=== PATIENT | female | born 1940 | race Caucasian/White ===

== ENCOUNTER → 2020-04-11 10:41 | Outpatient (BNVA) | payer BC, SELFPAY | PROVIDERS: PCP Family Medicine; Visit Provider Physician Assistant | DX: M17.11 Unilateral primary osteoarthritis, right knee (principal) | CPT/HCPCS: 20610; J1040 ==

== ENCOUNTER → 2020-10-01 12:49 | Outpatient (BNVA) | payer BC, SELFPAY | PROVIDERS: PCP Family Medicine; Visit Provider Physician Assistant ==

== ENCOUNTER 2020-10-20 09:43 | Outpatient (REF) | payer BC, SELFPAY ==
--- NOTE | ~2020-10-20 | XR_ITS ---
EXAMINATION: XR KNEE AP STANDING CLINICAL INFORMATION: Pain COMPARISON: Right knee x-ray July 2019 TECHNIQUE: AP bilateral standing view of the knees was obtained. FINDINGS: Right knee: There is slight varus angulation. Bone alignment is otherwise normal. There is medial femoral tibial joint space narrowing. There is a soft tissue calcified adjacent to the medial femoral condyle. Left knee: There is mild medial subluxation of the distal femur with respect to the proximal tibia. There is joint space narrowing at the medial and lateral femoral tibial joints. XR/XR knee standing BI IMPRESSION: Degenerative changes.
== END 2020-10-20 09:44 | disposition home or self-care (01) ==
LOC: HO.HOSX 09:43
PROVIDERS: Visit Provider Orthopaedic Surgery
DX: M17.11 Unilateral primary osteoarthritis, right knee (principal)
CPT/HCPCS: 73565

== ENCOUNTER → 2020-12-23 09:54 | Outpatient (BNVA) | payer BC, SELFPAY | PROVIDERS: PCP Family Medicine; Visit Provider Orthopaedic Surgery | DX: Z01.818 Encounter for other preprocedural examination (principal); M17.11 Unilateral primary osteoarthritis, right knee | CPT/HCPCS: 36415; 80048; 85025; 93005 ==

== ENCOUNTER → 2021-01-15 12:18 | Outpatient (BNVA) | payer MEDICARE, SELFPAY | PROVIDERS: Visit Provider Physician Assistant | DX: M17.11 Unilateral primary osteoarthritis, right knee (principal) | CPT/HCPCS: 99212 ==

== ENCOUNTER 2021-01-20 06:09 | Inpatient (IN) | payer MEDICARE, SELFPAY ==
--- NOTE | 2020-12-23 11:03 | ECG_ITS ---
Test Reason : preop Blood Pressure : / mmHG Vent. Rate : 082 BPM Atrial Rate : 082 BPM P-R Int : 182 ms QRS Dur : 086 ms QT Int : 390 ms P-R-T Axes : 067 029 056 degrees QTc Int : 455 ms Normal sinus rhythm Normal ECG No previous ECGs available Referred By: Ramon Carrera Electronically Signed By:JANIA LITTLE
[2020-12-23 11:46] LABS: MANUAL DIFF FLAG NO
[2020-12-23 11:51] LABS: Basophils Absolute Auto 0.1 X10*3/uL (0.0-0.2); Basophils Percent Auto 1.1 % (0-2); Eosinophils Absolute Auto 0.2 X10*3/uL (0.0-0.4); Hematocrit 41.7 % (37-47); Hemoglobin 13.8 g/dl (12.0-16.0); Imm Gran Abs Auto 0.01 X10*3/uL (0.00-0.03); Imm Gran Pct Auto 0.2 % (0.0-0.4); Mean Corpuscular HGB Conc 33.1 g/dl (31.0-35.0); Mean Corpuscular Hemoglobin 30.2 pg (27.0-33.0); Mean Corpuscular Volume 91.2 fL (80-98); Mean Platelet Volume 9.5 fL (9.4-12.3); Monocytes Absolute Auto 0.5 X10*3/uL (0.1-1.2); Monocytes Percent Auto 7.9 % (2-11); Neutrophils Absolute Auto 2.8 X10*3/uL (2.0-8.3); Neutrophils Percent Auto 42.8 % (45-73); Platelet Count 242 X10*3/uL (160-400); Red Blood Count 4.57 X10*6/uL (4.20-5.50); White Blood Count 6.6 X10*3/uL (4.8-10.8)
[2020-12-23 12:44] LABS: Anion Gap 13 (12-20); Blood Urea Nitrogen 14 mg/dL (9-16); Calcium 9.7 mg/dL (8.4-10.2); Carbon Dioxide 25 mmol/L (22-29); Chloride 107 mmol/L (96-108); Estimated Glomerular Filt Rate > 60; Glucose Random 87 mg/dL (60-115); Potassium 4.2 mmol/L (3.3-5.1); Sodium 141 mmol/L (135-145)
[2021-01-05 12:10] VITALS: BP 165/76; PULSE 79; RESP 16; O2SAT 96; BMI 29.6
--- NOTE | 2021-01-05 12:20 | HO.ANESPROP2 ---
Documented by User: Mireya Hoover NP 01/19/21 09:10 HPI - Anesthesia Eval Consult details Narrative: 80yo F for Right Knee Replacement Total 01/20/21 [facility] Active Problems Active Problems: All Active Problems (Updated 01/05/21 @ 12:06 by Valentina Rose RN) Osteoarthritis of right knee (Acute) Past Medical History Medical History Allergic urticaria GERD (gastroesophageal reflux disease) Hypertension Hypothyroidism Macular degeneration Seasonal allergies Family History Family History Father No problems noted. Mother No problems noted. Family history of problems with anesthesia: No Surgical History Surgical History History of back surgery History of foot surgery History of lumbar fusion History of open reduction and internal fixation (ORIF) procedure History of partial hysterectomy History of removal of retained hardware History of Problems with Anesthesia: No (Reports nerve block for wrist surgery didn't work. Has had local anesthesia with dental work that sufficiently numbed area.) Social History Social History Are you a primary respiratory care program director to a significant other at home: No Do you presently have visiting nurse or other home services: No Alcohol intake: never Patient Tobacco Use Status: Former Tobacco user Quit Date: 50 yrs ago Tobacco use type: Cigarette Second Hand Smoke Exposure: No Use of substances other than those prescribed or required for medical reasons: No Have you been hit, kicked, punched, or otherwise hurt by someone within the past year? If so, by whom?: No Are you DNR?: No Advance Directives: No (Yes - at Home) Advance Directives Information Provided: No (To Bring in DOS) Advance Directives on File: No (To Bring in DOS) Recently lost weight without trying: No Eating poorly because of decreased appetite: No Nutrition Risks: No Nutritional Risk Patient : No Current occupational status: retired Narrative Narrative: No recent illness No CP/SOB with housework, walking dog, etc Meds Allergies Allergy/AdvReac Type Severity Reaction Status Date / Time latex Allergy Intermediate Hives Verified 01/20/21 06:13 penicillin V Allergy Intermediate Rash Verified 01/20/21 06:13 morphine Allergy Mild Vomiting Verified 01/20/21 06:13 Home Medications Medication Instructions Recorded Confirmed Last Taken Type baclofen 10 mg tablet 10 mg PO BEDTIME 04/11/20 01/05/21 Unknown History celecoxib 200 mg capsule 200 mg PO BID 04/11/20 01/05/21 Unknown History levothyroxine 100 mcg tablet 100 mcg PO DAILY 04/11/20 01/02/21 Unknown History nifedipine 30 mg tablet,extended 30 mg PO BEDTIME 04/11/20 01/05/21 Unknown History release 24 hr omeprazole 20 mg capsule,delayed 20 mg PO DAILY 04/11/20 01/02/21 Unknown History release clotrimazole-betamethasone 1 appl TOPICAL 10/01/20 12/23/20 Unknown History %-0.05 % topical cream nystatin 100,000 unit/gram topical TOPICAL 10/01/20 12/23/20 Unknown History powder aflibercept 2 mg/0.05 mL 2 mg INTRAVITREAL Q8W 12/23/20 01/02/21 Unknown History intravitreal solution for injection (Eylea) omalizumab 150 mg subcutaneous 150 mg SUBCUT Q4W 12/23/20 01/02/21 Unknown History solution (Xolair) ibuprofen 200 mg capsule 400 mg PO Q8H PRN 01/05/21 01/20/21 01/06/21 History vitamin A-vitamin C-vit E-min 1 tab PO DAILY 01/05/21 01/05/21 Unknown History tablet Exam Exam Date and Time: January 05, 2021 1220 Height,Weight and Vital Signs: Height 5 ft 2 in Weight 73.482 kg Last Vital Signs Pulse 79 01/05/21 12:10 Resp 16 01/05/21 12:10 BP 165/76 H 01/05/21 12:10 Pulse Ox 96 01/05/21 12:10 Pertinent Lab Results Pertinent Lab Results: Laboratory Tests 12/23/20 12/23/20 11:15 11:15 WBC 6.6 RBC 4.57 Hgb 13.8 Hct 41.7 MCV 91.2 MCH 30.2 MCHC 33.1 RDW 14.0 Plt Count 242 MPV 9.5 Immature Gran % (Auto) 0.2 Neut % (Auto) 42.8 L Lymph % (Auto) 45.0 H Amador % (Auto) 7.9 Eos % (Auto) 3.0 Baso % (Auto) 1.1 Lymph # (Auto) 3.0 Amador # (Auto) 0.5 Eos # (Auto) 0.2 Baso # (Auto) 0.1 Abs Immat Gran (auto) 0.01 Absolute Neuts (auto) 2.8 Absolute Nucleated RBC 0.000 Nucleated RBC % (auto) 0.0 Sodium 141 Potassium 4.2 Chloride 107 Carbon Dioxide 25 Anion Gap 13 BUN 14 Creatinine 0.80 Estim Creat Clear Calc TNP Estimated GFR > 60 Random Glucose 87 Calcium 9.7 Airway Mallampati Class: III TM Dist: >3cm Neck ROM: Full Loose/Missing/Broken Teeth: No (Crowned molars throughout) Heart: RRR Lungs: CTAB Assessment and Plan Assessment Anesthesia Assessment: Anesthesia Plan Discussed and PAT Visit Final Anesthetic Review Family History of Problems with Anesthesia: No History of Problems with Anesthesia: No (Reports nerve block for wrist surgery didn't work. Has had local anesthesia with dental work that sufficiently numbed area.) Documented by User: Jett Gray MD 01/20/21 08:47 [facility] Past Medical History Medical History Allergic urticaria GERD (gastroesophageal reflux disease) Hypertension Hypothyroidism Macular degeneration Seasonal allergies Family History Family History Father No problems noted. Mother No problems noted. Surgical History Surgical History History of back surgery History of foot surgery History of lumbar fusion History of open reduction and internal fixation (ORIF) procedure History of partial hysterectomy History of removal of retained hardware Social History Social History Are you a primary respiratory care program director to a significant other at home: No Do you presently have visiting nurse or other home services: No Alcohol intake: never Patient Tobacco Use Status: Former Tobacco user Quit Date: 50 yrs ago Tobacco use type: Cigarette Second Hand Smoke Exposure: No Use of substances other than those prescribed or required for medical reasons: No Have you been hit, kicked, punched, or otherwise hurt by someone within the past year? If so, by whom?: No Are you DNR?: No Advance Directives: No (Yes - at Home) Advance Directives Information Provided: No (To Bring in DOS) Advance Directives on File: No (To Bring in DOS) Recently lost weight without trying: No Eating poorly because of decreased appetite: No Nutrition Risks: No Nutritional Risk Patient : No Current occupational status: retired Meds Allergies Allergy/AdvReac Type Severity Reaction Status Date / Time latex Allergy Intermediate Hives Verified 01/20/21 06:13 penicillin V Allergy Intermediate Rash Verified 01/20/21 06:13 morphine Allergy Mild Vomiting Verified 01/20/21 06:13 Home Medications Medication Instructions Recorded Confirmed Last Taken Type baclofen 10 mg tablet 10 mg PO BEDTIME 04/11/20 01/05/21 Unknown History celecoxib 200 mg capsule 200 mg PO BID 04/11/20 01/05/21 Unknown History levothyroxine 100 mcg tablet 100 mcg PO DAILY 04/11/20 01/02/21 Unknown History nifedipine 30 mg tablet,extended 30 mg PO BEDTIME 04/11/20 01/05/21 Unknown History release 24 hr omeprazole 20 mg capsule,delayed 20 mg PO DAILY 04/11/20 01/02/21 Unknown History release clotrimazole-betamethasone 1 appl TOPICAL 10/01/20 12/23/20 Unknown History %-0.05 % topical cream nystatin 100,000 unit/gram topical TOPICAL 10/01/20 12/23/20 Unknown History powder aflibercept 2 mg/0.05 mL 2 mg INTRAVITREAL Q8W 12/23/20 01/02/21 Unknown History intravitreal solution for injection (Eylea) omalizumab 150 mg subcutaneous 150 mg SUBCUT Q4W 12/23/20 01/02/21 Unknown History solution (Xolair) ibuprofen 200 mg capsule 400 mg PO Q8H PRN 01/05/21 01/20/21 01/06/21 History vitamin A-vitamin C-vit E-min 1 tab PO DAILY 01/05/21 01/05/21 Unknown History tablet Exam Airway Other: Diffuse tongue fissuring Assessment and Plan Final Anesthetic Review NPO: Yes ASA Class: III Final Preanesthetic Review: No Changes in Pt Med Stat, Meds/Allgs Chart Reviewed, Consent Obtained/Reviewed and Anes Risks/Benef Reviewed Patient Risk: Intermediate Procedure Risk: Intermediate Anesthetic Plan Anesthetic Plan: GA (Backup), Spinal and Regional Block Disposition: Standard PACU
[2021-01-05 15:32] LABS: MRSA Nasal PCR NEGATIVE (Negative); SA Nasal PCR NEGATIVE (Negative)
[2021-01-20] VITALS (18 sets, daily range): BP systolic 129–189; BP diastolic 48–98; PULSE 68–108; RESP 12–20; TEMP 36.1–37.1; O2SAT 93–100
--- NOTE | ~2021-01-20 | XR_ITS ---
EXAMINATION: XR KNEE, RIGHT CLINICAL INFORMATION: Right TKA. COMPARISON: None TECHNIQUE: Two views of the right knee. FINDINGS: There is a total knee arthroplasty with prosthetic components in satisfactory alignment. There is gas and soft tissue swelling in the anterior knee. There are surgical mayra anteriorly from surgery. XR/XR knee RT 2V IMPRESSION: Total right knee arthroplasty in satisfactory alignment with immediate postoperative changes noted.
--- NOTE | 2021-01-20 06:34 | PC.NURSE ---
Preop dose of Vancomycin 1 Gram IV verified with Gabrielle (Pharmacist) and Anjali (Sawmill Supervisor) over the phone.
[2021-01-20 06:38] LABS: COVID-19 Test Negative (Negative); IDNOW Serial# 9DD0AD1C
[2021-01-20] MEDS: vancomycin HCL 1,000 MG in 0.9 % Sodium Chloride 250 ML 270 MG IV ×2 (07:01→18:58)
[2021-01-20] MEDS: Lactated Ringers 1,000 ML 100 ML IVCONT (07:03)
--- NOTE | 2021-01-20 09:53 | P.BOP_ITS ---
Brief Operative Note Date of Service: 01/20/21 Pre-op diagnosis: right knee OA Post-op diagnosis: same Procedure: Right TKA Implants: [place] [employer] 07/06/TS/32a Surgeon: Ramon Carrera MD Anesthesia: GETA and regional Was an Active Directory Architect used for this Procedure?: Yes Active Directory Architect: Maki Alvarado Estimated blood loss (mL): 200 IV fluids (mL): 1,000 Pathology: other Condition: stable Disposition: PACU
[2021-01-20] MEDS: HYDROmorphone HCl 0.5 MG/0.5 ML SYRINGE 0.25 MG IVPUSH ×5 (10:14→16:11)
--- NOTE | 2021-01-20 10:18 | W.PM.OPN ---
Operative Note Operative Note Date of Service: 01/20/21 Narrative: Pre-op diagnosis: right knee OA Post-op diagnosis: same Procedure: Right TKA Implants: [place] [employer] //16TS/32a Surgeon: Ramon Carrera MD Anesthesia: GETA and regional Was an Drill Press Set Up Operator Radial used for this Procedure?: Yes Drill Press Set Up Operator Radial: Maki Alvarado Estimated blood loss (mL): 200 IV fluids (mL): 1,000 Pathology: other Condition: stable Procedure in detail: Patient was brought to the operating room and prepped and draped in standard sterile fashion. A time-out was called to identify proper site proper procedure proper surgeon IV antibiotics were administered. The patient had a 10 deg flesion contracture iwth fixed varus deformity. I began by making a midline incision to the retinaculum and performed a medial parapatellar arthrotomy. The patella was translated laterally and the knee was flexed up. The knee was eburnated in all compartmentw with a depressed medial plateau. I performed a small medial peel and resected the infrapatellar fat pad. [place]'s line was then used to drill my intramedullary femoral guide and my distal femur cut was made in 5 degrees of valgus. I then measured a # 4 femur and placed my cutting guide and made my anterior posterior and chamfer cuts protecting the soft tissues at all times. I then made a box cut and removed the PCL. Once I was satisfied with my cut I turned my attention to the tibia. I removed the meniscus and , using an external cutting guide, in line with the tibial crest and the third ray, I made my distal tibial cut ( 0 deg slope) while protecting the posterior soft tissues at all times. An extension block was used to confirm appropriate amount of bony resection. 2 mm was taken off the medial side which resulted in a large lateral cut. I then sized a # 4 tibia and once I was satisfied that there was good tibial coverage I placed my trial and with the trial femur in place took the knee through range of motion. I was satisfied with the extension and flexion as well as the stability at 0, 30 and 90 degrees. I then turned my attention to the patella where I removed 1 cm from the undersurface of the patella and then trialed a 32a patellar button. Again the knee was taken through range of motion I was satisfied with the tracking. I then prepared the tibia. Femoral bone plug was then placed and the knee was irrigated copiously. I then cemented in the patella, tibia and femur in standard fashion while applying axial compression. I trialed different inserts until I selected a #_[id number]___ insert. The final insert was placed and a 3 minutes iodine soak. The knee was then closed with a running Quill suture, a 3 0 Vicryl and mayra on the skin. Patient was then placed in sterile dressing and brought to recovery room in stable condition there were no known complications.
[2021-01-20] MEDS: fentaNYL citrate/PF 100 MCG/2 ML VIAL 50 MCG IVPUSH (10:32)
[2021-01-20] MEDS: HYDROmorphone HCl 0.5 MG/0.5 ML SYRINGE IVPUSH (10:43)
[2021-01-20] MEDS: Dextrose 5 % and 0.45 % NaCl 1,000 ML 80 ML IVCONT (12:30)
--- NOTE | 2021-01-20 12:33 | P.CONIM_ITS ---
History of Present Illness Data of Consult Service Date: 01/20/21 Primary Care Provider: Anayeli Gaytan MD HPI Reason for consult: htn, hypothryoid 80F presented for elective right TKA for right knee OA. she has been having ongoing right knee pain affecting quality of life, not fully controlled by medications, therefore underwent right TKA today. medicine consulted to manage comorbidities of HTN, hypothryoid. generally well controlled on nifedipine and 100mcg levothyrozine. patient is doing well postoperatively, no pain, a little drowsy. Review of Systems Review of Systems: Constitutional: Denies fever, denies Chills Eyes: denies blurry vision ENT: denies sore throat CVS: denies chest pain Respiratory: Denies dyspnea GI: no abdominal pain : denies dysuria MSK: denies neck pain Skin: denies rash Neuro: denies specific motor weakness Psych: denies suicidal ideation Endocrine: denies heat/cold intolerance Hematologic: denies easy bleeding Allergy: denies hives [facility] Medical History Allergic urticaria GERD (gastroesophageal reflux disease) Hypertension Hypothyroidism Macular degeneration Seasonal allergies Family History Father No problems noted. Mother No problems noted. Pertinent family history: . Surgical History History of back surgery History of foot surgery History of lumbar fusion History of open reduction and internal fixation (ORIF) procedure History of partial hysterectomy History of removal of retained hardware Social History Are you a primary neurocritical care physician to a significant other at home: No Do you presently have visiting nurse or other home services: No Alcohol intake: never Patient Tobacco Use Status: Former Tobacco user Quit Date: 50 yrs ago Tobacco use type: Cigarette Second Hand Smoke Exposure: No Use of substances other than those prescribed or required for medical reasons: No Have you been hit, kicked, punched, or otherwise hurt by someone within the past year? If so, by whom?: No Are you DNR?: No Advance Directives: No (Yes - at Home) Advance Directives Information Provided: No (To Bring in DOS) Advance Directives on File: No (To Bring in DOS) Recently lost weight without trying: No Eating poorly because of decreased appetite: No Nutrition Risks: No Nutritional Risk Patient : No Current occupational status: retired Meds Allergies Allergy/AdvReac Type Severity Reaction Status Date / Time latex Allergy Intermediate Hives Verified 01/20/21 06:13 penicillin V Allergy Intermediate Rash Verified 01/20/21 06:13 morphine Allergy Mild Vomiting Verified 01/20/21 06:13 Active Medications: Current Medications Acetaminophen (Acetaminophen 325 Mg Tablet) 650 mg PO Q6H PRN PRN Reason: Pain, Mild (Pain Scale 1-3) Baclofen (Baclofen 10 Mg Tablet) 10 mg PO BEDTIME [facility] Celecoxib (Celecoxib 200 Mg Capsule) 200 mg PO BID [facility] Docusate Sodium (Docusate Sodium 100 Mg Capsule) 100 mg PO BID [facility] Hydromorphone HCl (Hydromorphone Hcl 0.5 Mg/0.5 Ml Syringe) 0.5 mg IVPUSH Q5M PRN; Protocol PRN Reason: Pain, Severe (Pain Scale 7-10) Last Admin: 01/20/21 10:43 Dose: 0.5 mg Documented by: Hydromorphone HCl (Hydromorphone Hcl 0.5 Mg/0.5 Ml Syringe) 0.25 mg IVPUSH Q4H PRN; Protocol PRN Reason: Pain, Severe (Pain Scale 7-10) Dextrose/Sodium Chloride (D51/2ns) 1,000 mls @ 80 mls/hr IVCONT .[id number] [facility] Vancomycin HCl 1,000 mg/ (Sodium Chloride) 270 mls @ 270 mls/hr IV POSTOP ONE Stop: 01/20/21 19:59 Levothyroxine Sodium (Levothyroxine Sodium 100 Mcg Tablet) 100 mcg PO DAILY [facility] Nifedipine (Nifedipine Er 30 Mg Tab.Er.24) 30 mg PO BEDTIME [facility]; Protocol Non-Formulary Medication (Aflibercept [Eylea]) 2 mg INTRAVITRE Q8W [facility] Non-Formulary Medication (Vitamin A-Vitamin C-Vit E-Min) 1 tab PO DAILY [facility] Omeprazole (Omeprazole 20 Mg Capsule.Dr) 20 mg PO DAILY [facility] Ondansetron HCl (Ondansetron Hcl 4 Mg/2 Ml Vial) 4 mg IVPUSH Q8H PRN PRN Reason: Nausea and Vomiting Oxycodone HCl (Oxycodone Hcl Immed Release 5 Mg Tablet) 5 mg PO Q4H [facility] Pharmacy Consult (Consult Rx Vancomycin Dosing) 1 each MISCELLANE DAILY PRN PRN Reason: Consult order Sodium Chloride (0.9 % Sodium Chloride Flush 3 Ml Syringe) 3 ml IVFLUSH QSHIFT [facility] Home Medications Medication Instructions Recorded Confirmed Last Taken Type baclofen 10 mg tablet 10 mg PO BEDTIME 04/11/20 01/05/21 Unknown History celecoxib 200 mg capsule 200 mg PO BID 04/11/20 01/05/21 Unknown History levothyroxine 100 mcg tablet 100 mcg PO DAILY 04/11/20 01/02/21 Unknown History nifedipine 30 mg tablet,extended 30 mg PO BEDTIME 04/11/20 01/05/21 Unknown History release 24 hr omeprazole 20 mg capsule,delayed 20 mg PO DAILY 04/11/20 01/02/21 Unknown History release clotrimazole-betamethasone 1 appl TOPICAL 10/01/20 12/23/20 Unknown History %-0.05 % topical cream nystatin 100,000 unit/gram topical TOPICAL 10/01/20 12/23/20 Unknown History powder aflibercept 2 mg/0.05 mL 2 mg INTRAVITREAL Q8W 12/23/20 01/02/21 Unknown History intravitreal solution for injection (Eylea) omalizumab 150 mg subcutaneous 150 mg SUBCUT Q4W 12/23/20 01/02/21 Unknown History solution (Xolair) ibuprofen 200 mg capsule 400 mg PO Q8H PRN 01/05/21 01/20/21 01/06/21 History vitamin A-vitamin C-vit E-min 1 tab PO DAILY 01/05/21 01/05/21 Unknown History tablet Physical Exam Vital Signs and Narrative: Vital Signs: Last Vital Signs Temp 98.7 F 01/20/21 11:02 Pulse 86 01/20/21 11:50 Resp 14 01/20/21 11:50 BP 144/59 H 01/20/21 11:50 Pulse Ox 96 01/20/21 11:50 Body Mass Index 29.6 General: no acute distress HEENT: atraumatic Neck: normal to visual inspection CVS: S1, S2, RRR, murmur Resp: CTA bilateral Chest: non tender GI: soft, non tender, non distended : no CVA tenderness Skin: no rashes Extremities: no edema Neuro: Oriented X3, grossly intact Psych: cooperative Results Labs CBC and Chem 7: 12/23/20 11:15 12/23/20 11:15 Labs: Laboratory Results - last 24 hr 01/20/21 06:15 COVID-19 ([facility]) Negative COVID-19 Clin Com See Note Imaging Radiologist's Impressions: Impressions Knee X-Ray 01/20/21 10:22 IMPRESSION: Total right knee arthroplasty in satisfactory alignment with immediate postoperative changes noted. Assessment and Plan (1) Hypothyroidism: Status: Acute (2) Hypertension: Status: Acute 80F presented for right TKA right TKA management per ortho HTN nifedipine 30mg daily, monitor blood pressure hypothryoid synthroid 100mcg daily
[2021-01-20] MEDS: oxyCODONE HCl Immed Release 5 MG TABLET PO (13:00)
[2021-01-20] MEDS: ondansetron HCL 4 MG/2 ML VIAL IVPUSH ×2 (13:33→20:17)
[2021-01-20] MEDS: NIFEdipine ER 30 MG TAB.ER.24 PO (20:17)
[2021-01-20] MEDS: Baclofen 10 MG TABLET PO (20:17)
[2021-01-20] MEDS: Celecoxib 200 MG CAPSULE PO (20:17)
[2021-01-21] VITALS (8 sets, daily range): BP systolic 108–136; BP diastolic 47–61; PULSE 72–85; RESP 16–18; TEMP 36.1–36.9; O2SAT 94–96
[2021-01-21] MEDS: Dextrose 5 % and 0.45 % NaCl 1,000 ML 80 ML IVCONT ×3 (02:41→23:50)
[2021-01-21 04:24] LABS: MANUAL DIFF FLAG NO
[2021-01-21 04:30] LABS: Basophils Percent Auto 0.1 % (0-2); Hematocrit 25.9 % (37-47); Hemoglobin 8.6 g/dl (12.0-16.0); Imm Gran Abs Auto 0.02 X10*3/uL (0.00-0.03); Imm Gran Pct Auto 0.2 % (0.0-0.4); Lymphocytes Absolute Auto 1.8 X10*3/uL (1.2-4.9); Lymphocytes Percent Auto 21.6 % (20-40); Mean Corpuscular HGB Conc 33.2 g/dl (31.0-35.0); Mean Corpuscular Hemoglobin 30.4 pg (27.0-33.0); Mean Corpuscular Volume 91.5 fL (80-98); Mean Platelet Volume 9.6 fL (9.4-12.3); Monocytes Absolute Auto 1.1 X10*3/uL (0.1-1.2); Monocytes Percent Auto 13.2 % (2-11); Neutrophils Absolute Auto 5.5 X10*3/uL (2.0-8.3); Neutrophils Percent Auto 64.9 % (45-73); Platelet Count 188 X10*3/uL (160-400); Red Blood Count 2.83 X10*6/uL (4.20-5.50); Red Cell Distribution Width 14.3 % (11.0-16.0); White Blood Count 8.5 X10*3/uL (4.8-10.8)
[2021-01-21 04:50] LABS: Anion Gap 11 (12-20); Blood Urea Nitrogen 20 mg/dL (9-16); Calcium 7.9 mg/dL (8.4-10.2); Carbon Dioxide 22 mmol/L (22-29); Chloride 108 mmol/L (96-108); Creatinine Clr Calc Pharmacy 50.9; Estimated Glomerular Filt Rate > 60; Glucose Fasting 125 mg/dL (60-99); Sodium 137 mmol/L (135-145)
[2021-01-21] MEDS: Omeprazole 20 MG CAPSULE.DR PO (06:40)
[2021-01-21] MEDS: Levothyroxine Sodium 100 MCG TABLET PO (06:40)
--- NOTE | 2021-01-21 07:32 | PM.PNORT ---
Subjective Subjective Date of Service: 01/21/21 Interval history: POD1 s/p RTKA patient is resting in bed comfortably. No overnight events. Pain is well managed. No additional complaints. Physical Exam Vital Signs: Vital Signs: Last Vital Signs Temp 96.9 F 01/21/21 03:41 Pulse 72 01/21/21 03:41 Resp 17 01/21/21 03:41 BP 122/47 L 01/21/21 03:41 Pulse Ox 96 01/21/21 03:41 Body Mass Index 29.6 Const: General: cooperative, healthy appearing and no acute distress Resp: Effort & Inspection: normal respiratory effort and able to speak in complete sentences Cardio: Rate: regular rate Peripheral pulses: Peripheral pulses 2+ throughout GI: Palpation (GI): Soft to palpation Skin: Lesions: no lesions Rashes: no rashes Extrem: Other: Right knee dressing clean dry and intact. No drainage. NVI Procedures Date of Service Date of Service: 01/21/21 Progress Note: A&P Assessment and plan (1) S/P total knee arthroplasty: Status: Acute Assessment and Plan: Continue pain mgmnt Begin ASA for dvt ppx begin PT for RTKA Dispo planning-Pending PT eval, pain mgmnt Fall Risk Details Current Medications: Current Medications Acetaminophen (Acetaminophen 325 Mg Tablet) 650 mg PO Q6H PRN PRN Reason: Pain, Mild (Pain Scale 1-3) Aspirin (Aspirin 325 Mg Tablet) 325 mg PO BID@1100,2300 [facility] Baclofen (Baclofen 10 Mg Tablet) 10 mg PO BEDTIME [facility] Last Admin: 01/20/21 20:17 Dose: 10 mg Documented by: Celecoxib (Celecoxib 200 Mg Capsule) 200 mg PO BID [facility] Last Admin: 01/20/21 20:17 Dose: 200 mg Documented by: Docusate Sodium (Docusate Sodium 100 Mg Capsule) 100 mg PO BID [facility] Last Admin: 01/20/21 20:18 Dose: Not Given Documented by: Hydromorphone HCl (Hydromorphone Hcl 0.5 Mg/0.5 Ml Syringe) 0.5 mg IVPUSH Q5M PRN; Protocol PRN Reason: Pain, Severe (Pain Scale 7-10) Last Admin: 01/20/21 10:43 Dose: 0.5 mg Documented by: Hydromorphone HCl (Hydromorphone Hcl 0.5 Mg/0.5 Ml Syringe) 0.25 mg IVPUSH Q4H PRN; Protocol PRN Reason: Pain, Severe (Pain Scale 7-10) Last Admin: 01/20/21 16:11 Dose: 0.25 mg Documented by: Dextrose/Sodium Chloride (D51/2ns) 1,000 mls @ 80 mls/hr IVCONT .[id number] [facility] Last Admin: 01/21/21 02:41 Dose: 80 mls/hr Documented by: Levothyroxine Sodium (Levothyroxine Sodium 100 Mcg Tablet) 100 mcg PO DAILY@0630 [facility] Last Admin: 01/21/21 06:40 Dose: 100 mcg Documented by: Multivitamins/Vitamin C (Multivitamin Tablet) 1 tab PO DAILY [facility] Nifedipine (Nifedipine Er 30 Mg Tab.Er.24) 30 mg PO BEDTIME [facility]; Protocol Last Admin: 01/20/21 20:17 Dose: 30 mg Documented by: Omeprazole (Omeprazole 20 Mg Capsule.Dr) 20 mg PO DAILY@0630 [facility] Last Admin: 01/21/21 06:40 Dose: 20 mg Documented by: Ondansetron HCl (Ondansetron Hcl 4 Mg/2 Ml Vial) 4 mg IVPUSH Q8H PRN PRN Reason: Nausea and Vomiting Last Admin: 01/20/21 20:17 Dose: 4 mg Documented by: Oxycodone HCl (Oxycodone Hcl Immed Release 5 Mg Tablet) 5 mg PO Q4H [facility] Last Admin: 01/21/21 04:06 Dose: Not Given Documented by: Sodium Chloride (0.9 % Sodium Chloride Flush 3 Ml Syringe) 3 ml IVFLUSH QSHIFT [facility] Last Admin: 01/21/21 00:05 Dose: Not Given Documented by: Time Spent With Patient Time: Total time spent is greater than 50% in coordination of care (as documented) at patient's floor/unit and/or counseling patient: Time with patient: less than 15 minutes Quality Stroke Does the patient have a stroke diagnosis?: No VTE Prior VTE?: No VTE Risk Level:: Surgical - high VTE Device Contraindication: N/A - Device Ordered VTE Drug Contraindication: N/A - Med Ordered
[2021-01-21] MEDS: Multivitamin TABLET 1 TAB PO (08:05)
[2021-01-21] MEDS: Celecoxib 200 MG CAPSULE PO ×2 (08:05→21:21)
[2021-01-21] MEDS: Docusate Sodium 100 MG CAPSULE PO ×2 (08:05→21:21)
[2021-01-21] MEDS: Aspirin 325 MG TABLET PO ×2 (10:58→21:26)
--- NOTE | 2021-01-21 12:46 | HO.PM.IMPN ---
Subjective Subjective Date of Service: 01/21/21 Interval History: Doing well overall. No acute issues at this time Review of Systems Denies chest pain Denies shortness of breath Denies nausea vomiting diarrhea Physical Exam Vital Signs: Vital Signs: Last Vital Signs Temp 98.0 F 01/21/21 12:00 Pulse 74 01/21/21 12:00 Resp 18 01/21/21 12:00 BP 121/48 L 01/21/21 12:00 Pulse Ox 95 01/21/21 12:00 Body Mass Index 29.6 Const: Other: Resting comfortably no acute distress HENMT: Other: Membranes moist; posterior pharynx clear Resp: Other: Clear to auscultation all jaimes; no rales rhonchi or wheezes Cardio: Other: No S4; positive S1-S2; no S3 murmurs rubs or gallops GI: Other: The soft nontender nondistended with normoactive bowel sounds Extrem: Other: No edema Objective Data Active Medications Acetaminophen (Acetaminophen 325 Mg Tablet) 650 mg PO Q6H PRN PRN Reason: Pain, Mild (Pain Scale 1-3) Aspirin (Aspirin 325 Mg Tablet) 325 mg PO BID@1100,2300 PENDING SALE TO [facility] Last Admin: 01/21/21 10:58 Dose: 325 mg Documented by: WILFREDO Baclofen (Baclofen 10 Mg Tablet) 10 mg PO BEDTIME [facility]END[facility] TO [facility] Last Admin: 01/20/21 20:17 Dose: 10 mg Documented by: RAJAT Celecoxib (Celecoxib 200 Mg Capsule) 200 mg PO BID [facility]END[facility] TO [facility] Last Admin: 01/21/21 08:05 Dose: 200 mg Documented by: WILFREDO Docusate Sodium (Docusate Sodium 100 Mg Capsule) 100 mg PO BID [facility] Last Admin: 01/21/21 08:05 Dose: 100 mg Documented by: WILFREDO Hydromorphone HCl (Hydromorphone Hcl 0.5 Mg/0.5 Ml Syringe) 0.5 mg IVPUSH Q5M PRN; Protocol PRN Reason: Pain, Severe (Pain Scale 7-10) Last Admin: 01/20/21 10:43 Dose: 0.5 mg Documented by: GINA Hydromorphone HCl (Hydromorphone Hcl 0.5 Mg/0.5 Ml Syringe) 0.25 mg IVPUSH Q4H PRN; Protocol PRN Reason: Pain, Severe (Pain Scale 7-10) Last Admin: 01/20/21 16:11 Dose: 0.25 mg Documented by: RAJAT Dextrose/Sodium Chloride (D51/2ns) 1,000 mls @ 80 mls/hr IVCONT .[id number] PENDING SALE TO [facility] Last Admin: 01/21/21 02:41 Dose: 80 mls/hr Documented by: SETH Levothyroxine Sodium (Levothyroxine Sodium 100 Mcg Tablet) 100 mcg PO DAILY@0630 PEND[facility] TO [facility] Last Admin: 01/21/21 06:40 Dose: 100 mcg Documented by: SETH Multivitamins/Vitamin C (Multivitamin Tablet) 1 tab PO DAILY [facility]END[facility] Last Admin: 01/21/21 08:05 Dose: 1 tab Documented by: WILFREDO Nifedipine (Nifedipine Er 30 Mg Tab.Er.24) 30 mg PO BEDTIME PENDING SALE TO [facility]; Protocol Last Admin: 01/20/21 20:17 Dose: 30 mg Documented by: RAJAT Omeprazole (Omeprazole 20 Mg Capsule.Dr) 20 mg PO DAILY@0630 [facility]END[facility] TO [facility] Last Admin: 01/21/21 06:40 Dose: 20 mg Documented by: SETH Ondansetron HCl (Ondansetron Hcl 4 Mg/2 Ml Vial) 4 mg IVPUSH Q8H PRN PRN Reason: Nausea and Vomiting Last Admin: 01/20/21 20:17 Dose: 4 mg Documented by: RAJAT Oxycodone HCl (Oxycodone Hcl Immed Release 5 Mg Tablet) 5 mg PO Q4H PEND[facility] SALE TO [facility] Last Admin: 01/21/21 11:58 Dose: Not Given Documented by: WILFREDO Non-Admin Reason: Patient Refused Sodium Chloride (0.9 % Sodium Chloride Flush 3 Ml Syringe) 3 ml IVFLUSH QSHIFT [facility]ENDING SALE TO [facility] Last Admin: 01/21/21 07:41 Dose: Not Given Documented by: WILFREDO Non-Admin Reason: IV Running Labs CBC & Chem 7: 01/21/21 04:16 01/21/21 04:16 Labs: Laboratory Results - last 24 hr 01/21/21 01/21/21 04:16 04:16 MCV 91.5 MCH 30.4 MCHC 33.2 RDW 14.3 Plt Count 188 MPV 9.6 Immature Gran % (Auto) 0.2 Neut % (Auto) 64.9 Lymph % (Auto) 21.6 [place] % (Auto) 13.2 H Eos % (Auto) 0.0 Baso % (Auto) 0.1 Lymph # (Auto) 1.8 [place] # (Auto) 1.1 Eos # (Auto) 0.0 Baso # (Auto) 0.0 Abs Immat Gran (auto) 0.02 Absolute Neuts (auto) 5.5 Absolute Nucleated RBC 0.000 Nucleated RBC % (auto) 0.0 Anion Gap 11 L Estim Creat Clear Calc 50.9 Estimated GFR > 60 Fasting Glucose 125 H Calcium 7.9 L D Assessment and Plan (1) Hypertension: Status: Acute (2) Hypothyroidism: Status: Acute Assessment and Plan: 80F status post right total knee replacement 1. Hypertension Continue nifedipine as ordered; adjust as indicated 2. Hypothryoid synthroid 100mcg daily Quality Stroke Does the patient have a stroke diagnosis?: No VTE Prior VTE?: No VTE Risk Level:: Surgical - high VTE Device Contraindication: N/A - Device Ordered VTE Drug Contraindication: N/A - Med Ordered
[2021-01-21] MEDS: 0.9 % Sodium Chloride Flush 3 ML SYRINGE IVFLUSH ×2 (16:15→21:22)
[2021-01-21] MEDS: NIFEdipine ER 30 MG TAB.ER.24 PO (21:21)
[2021-01-21] MEDS: Baclofen 10 MG TABLET PO (21:22)
[2021-01-22] VITALS (17 sets, daily range): BP systolic 126–163; BP diastolic 53–71; PULSE 76–97; RESP 14–20; TEMP 36.2–36.8; O2SAT 94–98
[2021-01-22] MEDS: Omeprazole 20 MG CAPSULE.DR PO (05:21)
[2021-01-22] MEDS: Levothyroxine Sodium 100 MCG TABLET PO (05:24)
[2021-01-22 05:34] LABS: MANUAL DIFF FLAG NO
[2021-01-22 05:38] LABS: Basophils Percent Auto 0.4 % (0-2); Eosinophils Absolute Auto 0.1 X10*3/uL (0.0-0.4); Hematocrit 23.5 % (37-47); Hemoglobin 8.1 g/dl (12.0-16.0); Imm Gran Abs Auto 0.01 X10*3/uL (0.00-0.03); Imm Gran Pct Auto 0.1 % (0.0-0.4); Lymphocytes Absolute Auto 2.1 X10*3/uL (1.2-4.9); Lymphocytes Percent Auto 29.7 % (20-40); Mean Corpuscular HGB Conc 34.5 g/dl (31.0-35.0); Mean Corpuscular Hemoglobin 31.2 pg (27.0-33.0); Mean Corpuscular Volume 90.4 fL (80-98); Monocytes Absolute Auto 0.9 X10*3/uL (0.1-1.2); Monocytes Percent Auto 12.4 % (2-11); Neutrophils Absolute Auto 3.9 X10*3/uL (2.0-8.3); Neutrophils Percent Auto 55.4 % (45-73); Platelet Count 167 X10*3/uL (160-400); Red Cell Distribution Width 14.4 % (11.0-16.0); White Blood Count 7.1 X10*3/uL (4.8-10.8)
[2021-01-22 05:56] LABS: Anion Gap 7 (12-20); Blood Urea Nitrogen 13 mg/dL (9-16); Calcium 8.2 mg/dL (8.4-10.2); Carbon Dioxide 25 mmol/L (22-29); Chloride 110 mmol/L (96-108); Creatinine Clr Calc Pharmacy 59.4; Estimated Glomerular Filt Rate > 60; Glucose Fasting 119 mg/dL (60-99); Potassium 3.9 mmol/L (3.3-5.1); Sodium 138 mmol/L (135-145)
--- NOTE | 2021-01-22 08:08 | HO.POSTANES ---
Post Anesthesia Evaluation Post Anesthesia Evaluation Vital Signs: Vital Signs Temp Pulse Resp BP Pulse Ox 01/22/21 08:00 97.8 F 91 17 133/59 L 96 01/22/21 03:37 97.7 F 86 17 148/63 H 94 01/22/21 00:00 98.2 F 91 17 149/59 H 95 01/21/21 21:21 85 129/59 L Anesthesia: Spinal and Nerve Block Mental Status: Awake Pain Control: Satisfactory Nausea/Vomiting: None Hydration: Adequate Anesthesia-Related Issues: No Anes. Related Issues
[2021-01-22] MEDS: Multivitamin TABLET 1 TAB PO (08:25)
[2021-01-22] MEDS: Docusate Sodium 100 MG CAPSULE PO ×2 (08:25→20:45)
[2021-01-22] MEDS: Celecoxib 200 MG CAPSULE PO ×2 (08:25→20:45)
[2021-01-22] MEDS: 0.9 % Sodium Chloride Flush 3 ML SYRINGE IVFLUSH (08:26)
--- NOTE | 2021-01-22 09:36 | MHC.CM.PN ---
PATIENT LIVES WITH SIGNIFICANT OTHER/HCP. COPY REQUESTED FOR MEDICAL; RECORD. SHE USES A WALKER AT HOME. NO VNA OR ELDER SERVICES IN THE HOME PATIENT PREFERS A REFERRAL TO [facility], NOW PLACED. PLAN IS FOR DISCHARGE HOME TODAY FOLLOWING BLOOD ADMINISTRATION. S.O. TO PROVIDE TRANSPORT HOME. IMM 01/21 IN CHART
--- NOTE | 2021-01-22 10:41 | PC.NURSE ---
Skin assessment completed. Patient has an Aquacel dressing to right knee, C/D/I. No staining present. No other skin issues noted at this time.
--- NOTE | 2021-01-22 11:46 | HO.PM.IMPN ---
Subjective Subjective Date of Service: 01/23/21 Interval History: Doing well overall. No acute issues at this time. To receive 2 units of packed RBCs as per Ortho Review of Systems Denies chest pain Denies shortness of breath Denies nausea vomiting diarrhea Physical Exam Vital Signs: Vital Signs: Last Vital Signs Temp 97.5 F 01/22/21 11:29 Pulse 78 01/22/21 11:29 Resp 17 01/22/21 11:29 BP 126/53 L 01/22/21 11:29 Pulse Ox 98 01/22/21 11:29 Body Mass Index 29.6 Const: Other: Resting comfortably no acute distress HENMT: Other: Membranes moist; posterior pharynx clear Resp: Other: Clear to auscultation all jaimes; no rales rhonchi or wheezes Cardio: Other: No S4; positive S1-S2; no S3 murmurs rubs or gallops GI: Other: The soft nontender nondistended with normoactive bowel sounds Extrem: Other: No edema Objective Data Active Medications Acetaminophen (Acetaminophen 325 Mg Tablet) 650 mg PO Q6H PRN PRN Reason: Pain, Mild (Pain Scale 1-3) Aspirin (Aspirin 325 Mg Tablet) 325 mg PO BID@1100,2300 [facility] Last Admin: 01/21/21 21:26 Dose: 325 mg Documented by: CORBIN Baclofen (Baclofen 10 Mg Tablet) 10 mg PO BEDTIME [facility] Last Admin: 01/21/21 21:22 Dose: 10 mg Documented by: CORBIN Celecoxib (Celecoxib 200 Mg Capsule) 200 mg PO BID [facility] Last Admin: 01/22/21 08:25 Dose: 200 mg Documented by: NAVDEEP Docusate Sodium (Docusate Sodium 100 Mg Capsule) 100 mg PO BID [facility] Last Admin: 01/22/21 08:25 Dose: 100 mg Documented by: NAVDEEP Hydromorphone HCl (Hydromorphone Hcl 0.5 Mg/0.5 Ml Syringe) 0.5 mg IVPUSH Q5M PRN; Protocol PRN Reason: Pain, Severe (Pain Scale 7-10) Last Admin: 01/20/21 10:43 Dose: 0.5 mg Documented by: GINA Hydromorphone HCl (Hydromorphone Hcl 0.5 Mg/0.5 Ml Syringe) 0.25 mg IVPUSH Q4H PRN; Protocol PRN Reason: Pain, Severe (Pain Scale 7-10) Last Admin: 01/20/21 16:11 Dose: 0.25 mg Documented by: RAJAT Levothyroxine Sodium (Levothyroxine Sodium 100 Mcg Tablet) 100 mcg PO DAILY@0630 [facility] Last Admin: 01/22/21 05:24 Dose: 100 mcg Documented by: CORBIN Multivitamins/Vitamin C (Multivitamin Tablet) 1 tab PO DAILY [facility] Last Admin: 01/22/21 08:25 Dose: 1 tab Documented by: NAVDEEP Nifedipine (Nifedipine Er 30 Mg Tab.Er.24) 30 mg PO BEDTIME [facility]; Protocol Last Admin: 01/21/21 21:21 Dose: 30 mg Documented by: CORBIN Omeprazole (Omeprazole 20 Mg Capsule.Dr) 20 mg PO DAILY@0630 [facility] Last Admin: 01/22/21 05:21 Dose: 20 mg Documented by: CORBIN Ondansetron HCl (Ondansetron Hcl 4 Mg/2 Ml Vial) 4 mg IVPUSH Q8H PRN PRN Reason: Nausea and Vomiting Last Admin: 01/20/21 20:17 Dose: 4 mg Documented by: RAJAT Oxycodone HCl (Oxycodone Hcl Immed Release 5 Mg Tablet) 5 mg PO Q4H [facility] Last Admin: 01/22/21 03:23 Dose: Not Given Documented by: CORBIN Non-Admin Reason: Patient Refused Sodium Chloride (0.9 % Sodium Chloride Flush 3 Ml Syringe) 3 ml IVFLUSH QSPRFT [facility] Last Admin: 01/22/21 08:26 Dose: 3 ml Documented by: NAVDEEP Labs CBC & Chem 7: 01/23/21 05:54 01/23/21 05:54 Labs: Laboratory Results - last 24 hr 01/22/21 01/22/21 01/22/21 05:15 05:15 08:52 MCV 90.4 MCH 31.2 MCHC 34.5 RDW 14.4 Plt Count 167 MPV 10.0 Immature Gran % (Auto) 0.1 Neut % (Auto) 55.4 Lymph % (Auto) 29.7 [place] % (Auto) 12.4 H Eos % (Auto) 2.0 Baso % (Auto) 0.4 Lymph # (Auto) 2.1 [place] # (Auto) 0.9 Eos # (Auto) 0.1 Baso # (Auto) 0.0 Abs Immat Gran (auto) 0.01 Absolute Neuts (auto) 3.9 Absolute Nucleated RBC 0.000 Nucleated RBC % (auto) 0.0 Anion Gap 7 L Estim Creat Clear Calc 59.4 Estimated GFR > 60 Fasting Glucose 119 H Calcium 8.2 L Blood Type A Positive Antibody Screen NEGATIVE Crossmatch See Detail Assessment and Plan (1) S/P total knee arthroplasty: Status: Acute Assessment and Plan: 80F status post right total knee replacement 1. Hypertension Continue nifedipine as ordered; adjust as indicated 2. Hypothryoid synthroid 100mcg daily Quality Stroke Does the patient have a stroke diagnosis?: No VTE Prior VTE?: No VTE Risk Level:: Surgical - high VTE Device Contraindication: N/A - Device Ordered VTE Drug Contraindication: N/A - Med Ordered
[2021-01-22] MEDS: Aspirin 325 MG TABLET PO ×2 (12:03→23:59)
[2021-01-22] MEDS: Baclofen 10 MG TABLET PO (20:45)
[2021-01-22] MEDS: NIFEdipine ER 30 MG TAB.ER.24 PO (20:45)
[2021-01-23] VITALS: BP 169/67; PULSE 97; RESP 17; TEMP 36.3; O2SAT 95
[2021-01-23 04:00] VITALS: BP 154/63; PULSE 94; RESP 17; TEMP 36.8; O2SAT 95
[2021-01-23 06:10] LABS: MANUAL DIFF FLAG NO
[2021-01-23] MEDS: Levothyroxine Sodium 100 MCG TABLET PO (06:10)
[2021-01-23] MEDS: Omeprazole 20 MG CAPSULE.DR PO (06:10)
[2021-01-23 06:18] LABS: Basophils Absolute Auto 0.1 X10*3/uL (0.0-0.2); Basophils Percent Auto 0.9 % (0-2); Eosinophils Absolute Auto 0.4 X10*3/uL (0.0-0.4); Eosinophils Percent Auto 4.8 % (0-4); Hematocrit 29.9 % (37-47); Hemoglobin 10.2 g/dl (12.0-16.0); Imm Gran Abs Auto 0.01 X10*3/uL (0.00-0.03); Imm Gran Pct Auto 0.1 % (0.0-0.4); Lymphocytes Absolute Auto 2.4 X10*3/uL (1.2-4.9); Lymphocytes Percent Auto 30.9 % (20-40); Mean Corpuscular HGB Conc 34.1 g/dl (31.0-35.0); Mean Corpuscular Hemoglobin 30.5 pg (27.0-33.0); Mean Corpuscular Volume 89.5 fL (80-98); Mean Platelet Volume 9.5 fL (9.4-12.3); Monocytes Absolute Auto 0.8 X10*3/uL (0.1-1.2); Monocytes Percent Auto 9.9 % (2-11); Neutrophils Absolute Auto 4.1 X10*3/uL (2.0-8.3); Neutrophils Percent Auto 53.4 % (45-73); Platelet Count 159 X10*3/uL (160-400); Red Blood Count 3.34 X10*6/uL (4.20-5.50); Red Cell Distribution Width 14.4 % (11.0-16.0); White Blood Count 7.7 X10*3/uL (4.8-10.8)
[2021-01-23 06:32] LABS: Anion Gap 11 (12-20); Blood Urea Nitrogen 9 mg/dL (9-16); Calcium 8.2 mg/dL (8.4-10.2); Carbon Dioxide 22 mmol/L (22-29); Chloride 111 mmol/L (96-108); Creatinine Clr Calc Pharmacy 66.9; Estimated Glomerular Filt Rate > 60; Glucose Fasting 98 mg/dL (60-99); Potassium 3.8 mmol/L (3.3-5.1); Sodium 140 mmol/L (135-145)
[2021-01-23 07:26] VITALS: BP 131/84; PULSE 86; RESP 20; TEMP 37.1; O2SAT 94
[2021-01-23] MEDS: Docusate Sodium 100 MG CAPSULE PO (07:40)
[2021-01-23] MEDS: Celecoxib 200 MG CAPSULE PO (07:41)
[2021-01-23] MEDS: 0.9 % Sodium Chloride Flush 3 ML SYRINGE IVFLUSH ×2 (07:41)
[2021-01-23] MEDS: Multivitamin TABLET 1 TAB PO (07:41)
--- NOTE | 2021-01-23 08:33 | MHC.CM.PN ---
PATIENT IS DISCHARGED [facility] P[facility]
[2021-01-23 09:26] VITALS: BP 131/84; PULSE 86; O2SAT 94
[2021-01-23] MEDS: Aspirin 325 MG TABLET PO (09:46)
--- NOTE | 2021-01-23 10:09 | P.DS_ITS ---
DS: Providers Provider Date of Service: 02/21/21 Date of admission: 01/20/21 06:09 Primary care physician: Anayeli Gaytan MD Consults: 01/20/21 12:01 Consult to Hospitalist Routine Consulting Provider: Hospitalist Reason For Exam: post op medical management DS: Diagnosis Discharge Diagnosis (1) S/P total knee arthroplasty: Status: Acute DS: Summary Hospital Course Hospital Course: The patient underwent a successful right total knee arthroplasty, was transferred to PACU and then to the floor to recover. During their stay, their vitals were stable, afebrile at 97.1. Labs were unremarkable, H/H 10.2/29.9. POD 1 she was started on ASA for DVT ppx, they also received PT services twice a day. Prior to discharge, their dressing was change, incision clean dry and intact, new Aquacel dressing applied and the plan was to be discharged home with vna svs Time Spent with Patient Time attestation: Total time spent providing and/or coordinating discharge services: Discharge coordination time: Less than 30 minutes Quality: Stroke Does the patient have a stroke diagnosis?: No Physical Exam Vital Signs: Vital Signs: Last Vital Signs Temp 97.6 F 01/21/21 07:39 Pulse 74 01/21/21 09:24 Resp 16 01/21/21 07:39 BP 108/54 L 01/21/21 09:24 Pulse Ox 96 01/21/21 09:24 Body Mass Index 29.6 Const: General: cooperative, healthy appearing and no acute distress Resp: Effort & Inspection: normal respiratory effort and able to speak in complete sentences Cardio: Rate: regular rate Peripheral pulses: Peripheral pulses 2+ throughout GI: Palpation (GI): Soft to palpation Skin: General skin exam: no rashes or lesions noted Extrem: Other: incision clean dry and intact. Caty intact. No erythema or joint effusion. Calf supple nontender. Neurovascularly intact. DS: Data Data Completed and Pending Pending studies at discharge: Pending at discharge 01/20/21 09:30 Surgical [PTH] Routine Labs on day of discharge: Laboratory Results - last 24 hr 01/21/21 01/21/21 04:16 04:16 WBC 8.5 RBC 2.83 L D Hgb 8.6 L D Hct 25.9 L D MCV 91.5 MCH 30.4 MCHC 33.2 RDW 14.3 Plt Count 188 MPV 9.6 Immature Gran % (Auto) 0.2 Neut % (Auto) 64.9 Lymph % (Auto) 21.6 [place] % (Auto) 13.2 H Eos % (Auto) 0.0 Baso % (Auto) 0.1 Lymph # (Auto) 1.8 [place] # (Auto) 1.1 Eos # (Auto) 0.0 Baso # (Auto) 0.0 Abs Immat Gran (auto) 0.02 Absolute Neuts (auto) 5.5 Absolute Nucleated RBC 0.000 Nucleated RBC % (auto) 0.0 Sodium 137 Potassium 4.0 Chloride 108 Carbon Dioxide 22 Anion Gap 11 L BUN 20 H Creatinine 0.84 Estim Creat Clear Calc 50.9 Estimated GFR > 60 Fasting Glucose 125 H Calcium 7.9 L D Discharge Plan Discharge Patient Disposition: Home Health Service Discharge Diagnosis: s/p rt tka Referrals: Keena [facility]ERY [Outside] - 1 Week Maki Alvarado PA-C [Physician Car Record Clerk] - 2 Weeks (02/04/21 12:45 [facility] – [place] [facility] Maki Alvarado PA-C) Discharge Medications: New docusate sodium 100 mg Capsule 100 mg PO BID 14 Days Qty: 28 RF: 0 aspirin 325 mg Tablet 325 mg PO BID@1100,2300 28 Days Qty: 56 RF: 0 oxycodone 5 mg Tablet 5 mg PO Q4H 7 Days Qty: 42 RF: 0 acetaminophen 325 mg Tablet 650 mg PO Q6H PRN (Reason: Pain, Mild (Pain Scale 1-3)) 30 Days Qty: 240 RF: 0 Continued vitamin A-vitamin C-vit E-min Tablet 1 tab PO DAILY RF: 0 omeprazole 20 mg capsule,delayed release(DR/EC) 20 mg PO DAILY RF: 0 levothyroxine 100 mcg tablet 100 mcg PO DAILY RF: 0 baclofen 10 mg tablet 10 mg PO BEDTIME RF: 0 celecoxib 200 mg capsule 200 mg PO BID RF: 0 nifedipine 30 mg tablet extended release 24hr 30 mg PO BEDTIME RF: 0 nystatin 100,000 unit/gram powder topical RF: 0 clotrimazole-betamethasone 1-0.05 % cream topical RF: 0 Xolair 150 mg recon soln 150 mg subcut Q4W RF: 0 Eylea 2 mg/0.05 mL solution 2 mg intravitreal Q8W RF: 0 Discontinued ibuprofen 200 mg Capsule 400 mg PO Q8H PRN (Reason: Pain) RF: 0 Discharge Orders: Discharge Order (Routine); Ordered 01/23/21 Ordered By: Maki Alvarado Diet: regular diet Activity on Discharge: Use cane or walker Stand Alone Forms: Patient Portal Discharge page Care Plan Goals: Restore function of joint Health Concerns: none Plan of Treatment: Physical Therapy Pain management DVT prophylaxis Assessment: * Physical Therapy for Total knee arthroplasty: gait training, ROM 0-12, quad strength * Limit stair climbing * No showering, no tub bath-keep dressing clean, dry and intact * No driving x6 weeks * Continue Aspirin twice a day x 4 weeks * Follow up with [facility] – [place] Orth[facility]ics in 2 weeks Discharge Date/Time: 01/23/21 10:33
--- NOTE | 2021-01-23 10:54 | P.F2F_ITS ---
Service Date Service Date: 01/23/21 Reasons for Services Reason for physical therapy: home safety and mobility, therapeutic exercises, restore joint function, gait/transfer training, ADL training and energy conservation Reason for occupational therapy: home safety and mobility, therapeutic exercises, restore joint function, gait/transfer training, ADL training and energy conservation Overseeing Care: Ramon Carrera Homebound: Leaving the home is medically contraindicated at this time without the asist of a device and/or another person due th the listed conditions above and below. Reason homebound: unsteady gait / fall risk, leg weakness, pain with ambulation, poor balance / fall risk and unable to drive Homebound supporting statement: Pt. is considered home bound due to recent surgery. Unable to drive, poor balance, poor gait mechanics. Certification: Based on the above findings, I certify that this patient is confined to the home and needs intermittent custodial care, physical therapy and/or speech therapy, or continues to need occupational therapy. The patient is under my care, and I have initiated the establishment of the plan of care. The patient will be followed by a physician who will periodically review the plan of care.
== END 2021-01-23 10:33 | disposition home health service (06) | DRG 470 ==
LOC: HO.SSSA 06:12 → HO.S3 10:59
PROVIDERS: Hospitalist; Physician Assistant; Admitting Provider Orthopaedic Surgery; PCP Family Medicine; Visit Provider Orthopaedic Surgery
PROC: 0SRC0J9 Replacement of Right Knee Joint with Synthetic Substitute, Cemented, Open Approach (ICD-10-PCS; CPT 27447; principal; 2021-01-20 07:30)
DX: M17.11 Unilateral primary osteoarthritis, right knee (principal); K21.9 Gastro-esophageal reflux disease without esophagitis; I10 Essential (primary) hypertension; E03.9 Hypothyroidism, unspecified; Z20.822 Contact with and (suspected) exposure to COVID-19; Z87.891 Personal history of nicotine dependence; Z79.82 Long term (current) use of aspirin; Z79.890 Hormone replacement therapy; Z79.899 Other long term (current) drug therapy
CPT/HCPCS: 36415; 73560; 80048; 85025; 86850; 86900; 86901; 86923; 87635; 87640; 87641; 88305; 88311; 93005; 97110; 97116; 97161; C1713; C1776; J0131; J1100; J1170; J2250; J2405; J3010; J3370; P9016

== ENCOUNTER → 2021-02-04 12:50 | Outpatient (BNVA) | payer MEDICARE, SELFPAY | PROVIDERS: PCP Family Medicine; Visit Provider Physician Assistant | DX: Z47.1 Aftercare following joint replacement surgery (principal); Z96.659 Presence of unspecified artificial knee joint | CPT/HCPCS: 99212 ==

== ENCOUNTER 2021-03-05 12:10 | Outpatient (REF) | payer MEDICARE, SELFPAY ==
--- NOTE | ~2021-03-05 | XR_ITS ---
EXAMINATION: KNEE X-RAY CLINICAL INFORMATION: Post right knee replacement COMPARISON: Previous x-ray January 2021 and October 2020 TECHNIQUE: Standing AP view of both knees and lateral and sunrise view of the right knee FINDINGS: Right: There is a right knee replacement in satisfactory position. No fracture, dislocation or x-ray evidence of loosening is seen. There is a joint effusion. 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 There may be slight lateral subluxation of the tibia with respect to the femur. This is unchanged. XR/XR knee standing BI IMPRESSION: Satisfactory appearance of right knee replacement.
--- NOTE | ~2021-03-05 | XR_ITS ---
EXAMINATION: KNEE X-RAY CLINICAL INFORMATION: Post right knee replacement COMPARISON: Previous x-ray January 2021 and October 2020 TECHNIQUE: Standing AP view of both knees and lateral and sunrise view of the right knee FINDINGS: Right: There is a right knee replacement in satisfactory position. No fracture, dislocation or x-ray evidence of loosening is seen. There is a joint effusion. 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 There may be slight lateral subluxation of the tibia with respect to the femur. This is unchanged. XR/XR knee RT 2V IMPRESSION: Satisfactory appearance of right knee replacement.
== END 2021-03-05 12:11 | disposition home or self-care (01) ==
LOC: HO.HOSX 12:10
PROVIDERS: Visit Provider Orthopaedic Surgery
DX: Z47.1 Aftercare following joint replacement surgery (principal); Z96.651 Presence of right artificial knee joint
CPT/HCPCS: 73560; 73565; 99212